=== PATIENT | male | born 1940 | race Caucasian/White ===

== ENCOUNTER 2021-04-13 10:40 | Day surgery (SDC) | payer MEDICARE, OTHER ==
[2021-04-13] VITALS (8 sets, daily range): BP systolic 112–161; BP diastolic 57–75
[~2021-04-13] VITALS: Ht 180.3 cm; Wt 77.4 kg
[2021-04-13] MEDS ORDERED: LORazepam 0.5 MG tablet PO PRN (11:15)
[2021-04-13] MEDS ORDERED: normal saline 1,000 ML IV SCH (11:15)
[2021-04-13] MEDS ORDERED: diphenhydrAMINE 25mg capsule PO PRN (11:15)
[2021-04-13] MEDS ORDERED: MV-M1TAB19 PO (11:53)
[2021-04-13] MEDS ORDERED: UBID50TA3 PO (11:53)
[2021-04-13] MEDS ORDERED: POTA99TA21 PO (11:53)
[2021-04-13] MEDS ORDERED: VITA1TAB37 PO (11:53)
[2021-04-13] MEDS ORDERED: VITA-134 PO (11:53)
[2021-04-13] MEDS ORDERED: LIDOcaine 1% (10mg/ml)w/preservative injection 20ml MDV ONE (15:44)
[2021-04-13] MEDS ORDERED: heparin 1,000unit/ml 10ml vial 10 ML ONE (15:44)
[2021-04-13] MEDS ORDERED: verapamil 2.5 mg/ml inj IV ONE (15:44)
[2021-04-13] MEDS ORDERED: iohexol 350MG/ML 100ml bottle IV ONE ×2 (15:45→18:47)
[2021-04-13] MEDS ORDERED: nitroGLYCERIN-Tridil 50MG/D5W 250 ML IV ONE (15:45)
[2021-04-13] MEDS ORDERED: ticagrelor 90mg tablet ONE (19:21)
== END 2021-04-13 22:03 | disposition home or self-care (01) ==
LOC: SSTAY O 10:40
PROVIDERS: ATTEND Internal Medicine Interventional Cardiology
DX: R07.89 Other chest pain (principal); I25.10 Atherosclerotic heart disease of native coronary artery without angina pectoris; I25.82 Chronic total occlusion of coronary artery; E78.5 Hyperlipidemia, unspecified; Z79.899 Other long term (current) drug therapy
CPT/HCPCS: 93005; 93458; C1725; C1751; C1769; C1874; C1894; C9607; J1644; J2001; J7030; Q0163; Q9967; A4620; A6258; J3490

== ENCOUNTER 2022-03-02 11:46 | Day surgery (SDC) | payer MEDICARE, OTHER ==
[~2022-03-02] VITALS: Ht 180.3 cm; Wt 75.3 kg
[~2022-03-02 11:46] MED LIST: MV-M1TAB19 PO; POTA99TA26 PO; UBID50TA3 PO; VITA-134 PO; VITA1TAB37 PO
[2022-03-02] MEDS ORDERED: diphenhydrAMINE 25mg capsule PO PRN (12:20)
[2022-03-02] MEDS ORDERED: LORazepam 0.5 MG tablet PO PRN (12:20)
[2022-03-02] MEDS ORDERED: normal saline 1000ml 1,000 ML IV SCH (12:20)
[2022-03-02] MEDS ORDERED: TICA90TA2 PO (12:24)
[2022-03-02] MEDS ORDERED: heparin 1,000unit/ml 10ml vial 10 ML ONE (12:25)
[2022-03-02] MEDS ORDERED: LIDOcaine 1% (10mg/ml)w/preservative inj. 20ml MDV ONE (12:25)
[2022-03-02] MEDS ORDERED: fentaNYL/PF 50MCG/1 ML 2ML syringe ONE (12:25)
[2022-03-02] MEDS ORDERED: verapamil 2.5 mg/ml inj IV ONE (12:25)
[2022-03-02] MEDS ORDERED: iohexol 350MG/ML 100ml bottle IV ONE (12:25)
[2022-03-02] MEDS ORDERED: midazolam 1 mg/ML 2ml injection ONE (12:25)
[2022-03-02] MEDS ORDERED: nitroGLYCERIN-Tridil 50MG/D5W 250 ML IV ONE (12:25)
[2022-03-02] MEDS ORDERED: LIDOcaine/PRILOcaine 5gm cream TP ONE (12:25)
[2022-03-02] MEDS ORDERED: ASPI-1071 PO (12:27)
[2022-03-02] MEDS ORDERED: IVERMECTIN (12:28)
[2022-03-02 12:38] VITALS: BP 130/75
[2022-03-02] MEDS ORDERED: iohexol 350 MG/ML 50ML vial IV ONE (13:08)
[2022-03-02 13:26] VITALS: BP 101/60
[2022-03-02 13:48] VITALS: BP 107/59
[2022-03-02 14:15] VITALS: BP 93/57
[2022-03-02 14:30] VITALS: BP 101/58
[2022-03-02 15:00] VITALS: BP 100/59
== END 2022-03-02 15:45 | disposition home or self-care (01) ==
LOC: SSTAY O 11:46
PROVIDERS: ATTEND Internal Medicine Interventional Cardiology
DX: R94.39 Abnormal result of other cardiovascular function study (principal); I25.10 Atherosclerotic heart disease of native coronary artery without angina pectoris; I25.2 Old myocardial infarction; I10 Essential (primary) hypertension; E78.5 Hyperlipidemia, unspecified; Z79.899 Other long term (current) drug therapy; Z79.82 Long term (current) use of aspirin; Z95.5 Presence of coronary angioplasty implant and graft
CPT/HCPCS: 93454; C1769; C1894; J1644; J2250; J3010; J3490; J7030; Q9967; A5120